=== PATIENT | female | born 1980 | race Caucasian/White ===

== ENCOUNTER → 2017-10-08 | Outpatient (CLI) | payer OTHER ==
[~2017-10-08] MED LIST: CALC-515 PO; OMEP-125 PO; PREN-127 PO
== END ==
LOC: LAB 09:16
PROVIDERS: ATTEND Obstetrics & Gynecology
DX: O09.519 Supervision of elderly primigravida, unspecified trimester (principal)
CPT/HCPCS: 87081

== ENCOUNTER → 2017-10-14 | Outpatient (CLI) | payer OTHER ==
--- NOTE | 2017-10-14 13:49 | RADIOLOGY IMAGING REPORT ---
FACILITY: [facility] PATIENT NAME: Luly Stone : 1980 MR: [id number] V: [id number] EXAM DATE: ORDERING PHYSICIAN: JORDANA ZAVALA TECHNOLOGIST: Location: [facility] [place] Patient: Luly Stone : 1980 Visit/Account:[id number] Date of Sevice: 10/14/2017 [facility] OB LIMITED HISTORY: Size less than dates, evaluate for growth and amniotic fluid volume COMPARISON: None. TECHNIQUE: Transabdominal imaging was performed for assessment of the fetus and maternal pelvic s tructures. Transvaginal imaging was not performed. FINDINGS: Intrauterine gestations: One. presentation: Cephalic. heart rate: 152 bpm. Amniotic fluid volume: Normal; ADIA 10 cm; MVP 3.68 cm. Placenta: Posterior and fundal. Uterus: Gravid, otherwise grossly unremarkable where visualized. Maternal adnexa/ovaries: Not evaluated. Cervix: Not evaluated. Gestational Parameters: BPD: 8.9 cm, 27th percentile HC: 32.7 cm, 18th percentile AC: 29.5 cm, less than the 2nd percentile FL: 7.75 cm, 92nd percentile Average ultrasound age (AUA): 36 weeks/ five days Estimated age based on LMP: 37 weeks/ four days LMP percentile is 18% Estimated weight (EFW): 2788 grams +/- 407 grams Anatomic Survey: anatomic survey was not performed. IMPRESSION: Single fetus in cephalic presentation with an estimated gestational age by measurements of 36 weeks a nd five days. Estimated gestational age by LMP is 37 weeks and four days. Estimated weight 2788 g ADIA measures 10 cm, the MVP of 3.68 cm Report Dictated By: Kortney Miller MD at 10/14/2017 1:40 PM Report E-Signed By: Kortney Miller MD at 10/14/2017 1:46 PM WSN:[id number]
== END ==
LOC: RAD 11:10
PROVIDERS: ATTEND Student in an Organized Health Care Education/Training Program
DX: Z02.9 Encounter for administrative examinations, unspecified (principal)

== ENCOUNTER 2017-10-18 12:35 | Outpatient (CLI) | payer OTHER ==
[~2017-10-18] VITALS: Ht 182.9 cm; Wt 76.2 kg
[2017-10-18 13:05] VITALS: BP 117/82; Ht 182.9 cm; Wt 76.2 kg
--- NOTE | 2017-10-18 16:36 | RADIOLOGY IMAGING REPORT ---
[place] [facility] [place] NAME: Luly Stone : 1980 MR: [id number] V: [id number] EXAM DATE: ORDERING PHYSICIAN: PAULO CUELLAR TECHNOLOGIST: Location: [facility] Patient: Luly Stone : 1980 Visit/Account:[id number] Date of Sevice: 10/18/2017 EXAMINATION: Biophysical Profile COMPARISON: OB ultrasound earlier the same day.. HISTORY: IUGR and category II heart tracing in office AGE: 38 weeks 1 day based on LMP FINDINGS: Standard transabdominal ultrasound for biophysical profile was performed. Presentation: Cephalic Placenta: Posterior and fundal; better visualized on the earlier ultrasound. heart rate: 142 bpm Amniotic fluid index: 11.4 cm Largest fluid pocket: 4.5 cm Biophysical profile: breathing movement: 2/2 Gross body movement: 2/2 tone: 2/2 Amniotic fluid volume: 2/2 Total score: 8/8 IMPRESSION: 1. Biophysical profile score: 8/8 2. Amniotic fluid index: 11.4 cm 3. heart rate: 142 bpm Report Dictated By: Gregory Vergara MD at 10/18/2017 4:29 PM Report E-Signed By: Gregory Vergara MD at 10/18/2017 4:32 PM [id number]
== END 2017-10-18 16:39 | disposition home or self-care (01) ==
LOC: L&D 12:35 → UNDOADMOB 12:35 → OB 12:35 → L&D 16:39 → UNDODISOB 16:39 → EDSTATUS 10-19 10:49
PROVIDERS: ATTEND Student in an Organized Health Care Education/Training Program
DX: O26.893 Other specified pregnancy related conditions, third trimester (principal); Z3A.38 38 weeks gestation of pregnancy
CPT/HCPCS: 59025; 76819; 99213; G0378; G0379

== ENCOUNTER 2017-10-25 10:52 | Inpatient (IN) | payer OTHER ==
[~2017-10-25] VITALS: Ht 182.9 cm; Wt 76.7 kg
[2017-10-25] MEDS ORDERED: FAMOTIDINE(*) 20MG/50ML PREMIX 50 ML IVPB PRN (18:47)
[2017-10-25] MEDS ORDERED: LR(*) 1000 ML BAG 1,000 ML IV PRN (18:47)
[2017-10-25] MEDS ORDERED: fentaNYL CITR 100 MCG/2 ML AMP IVP PRN (18:50)
[2017-10-25] MEDS ORDERED: LIDOCAINE 1% LOCAL 300 MG/30ML INJ PRN (18:50)
[2017-10-25] MEDS ORDERED: FLUSH 10 ML SYR IVP PRN (18:50)
[2017-10-25] MEDS ORDERED: LIDOCAINE/SOD BICARB 8.4% SYR SC PRN (18:50)
[2017-10-25] MEDS ORDERED: TERBUTALINE SULF 1 MG/ML VIAL SUBQ PRN (18:50)
[2017-10-25] MEDS ORDERED: METOCLOPRAMIDE 10 MG/2 ML SDV IVP PRN (18:50)
[2017-10-25] MEDS ORDERED: DINOPROSTONE 10 MG INSERT PV ONE ×2 (19:40→19:49)
[2017-10-25 20:08] VITALS: BMI 22.9
[2017-10-25 20:23] LABS: PLATELET COUNT, AUTOMATED 125 K/uL (150-450)
[2017-10-25] MEDS ORDERED: OXYTOCIN 30 UNIT/D5LR 500 ML 500 ML IV PRN (20:51)
--- NOTE | 2017-10-25 21:00 | History & Physical ---
History of Present Illness EDC per LMP: Oct 31, 2017 Estimated Gestational Age: 39.1 Chief Complaint Induction for growth restriction History of Present Illness 37yo at 39w1d presents for induction due to growth restriction. She reports some UCx. No VB, LOF, preeclampsia symptoms. PNR reviewed. c/b AMA and asymmetric growth restriction. Her AC is 2%ile and overall EFW 18%ile on 10/14/17. Her umbilical doppler studies one week ago were normal and her NSTs have been reactive. She reports normal FM. PNC by [facility]. History Patient's Blood Type: O Positive Rubella Status: Immune Group B Strep Screen: Negative Obstetrical History: Primip Past Medical History: PMH: None PSH: [place] teeth Allergies: Uncoded Allergies: hayfever (Allergy, Unknown, 09/24/17) Social History: No T/E/D. . Family History: Patient reports no known family medical history. Med Rec Home Meds Active Scripts Omeprazole (OMEPRAZOLE) 20 Mg Capsule.dr, 1 CAP PO QDAY, #30 CAP 1 Refill Prov:JORDANA ZAVALA MD 10/08/17 Reported Medications Calcium Carbonate (TUMS) 200 Mg Tab.chew, 200 MG PO, TAB.CHEW 09/24/17 Vits W-Ca,Fe,Fa(<1MG) ( VITAMINS) 1 Each Tablet, 1 EACH PO DAILY, TAB 09/24/17 Review of Systems Constitutional: No Fever Neurological: No Syncope Eyes: No Vision Change Cardiovascular: No Chest Pain Respiratory: No Shortness of Breath Gastrointestinal: No Nausea, No Vomiting, No Diarrhea Genitourinary: No Dysuria Musculoskeletal: No Pain Psychiatric: No Depression, No Anxiety Exam General Exam Vital Signs VS reviewed General Apperance: Alert/Awake/No Acute Distress Neuro: No Gross deficits Eyes: Normal Extraocular Movement & Vison Cardiovascular: Regular Rate and Rhythm Respiratory: No Respiratory Distress, Clear to Auscultation Abdomen: Gravid - Non-Tender Musculoskeletal: No Weakness/Pain Extremities: No Cyanosis,Clubbing or Edema Integumentary: Skin Intact without Lesions or Rash Psychological: Alert & Oriented X3, Appropriate Mood & Affect Cervical Dialation: 1 Cervical Effacement (%): 25 Cervical Consistency: Moderate Cervical Position: Posterior Station: -2 Presentation: Vertex Uterine Contractions(Q min): 6 Uterine Contraction Strength: Mild UC Resting Tone: Soft Fetus FHT Category: I Medical Decision Making Data Points Result Diagram: 10/25/172009 Assessment and Plan Problems: (1) affected by growth restriction Assessment & Plan: 37yo at 39w1d presents for induction due to growth restriction. NST is reactive. Will initiate cervadil for ripening. She is aware of the increased risk of due to FGR. She prefers to not use anesthesia medications if she delivers vaginally. Will monitor closely. (2) AMA (advanced maternal age) multigravida 35+ Assessment & Plan: [id number] negative with female chromosomes. (3) 39 weeks gestation of JORDANA ZAVALA MD Oct 25, 2017 21:00
[2017-10-25] MEDS ORDERED: ZOLPIDEM TARTRATE 10 MG TAB PO PRN (21:10)
[2017-10-25] MEDS ORDERED: ACETAMINOPHEN 500 MG TAB PO PRN (21:10)
[2017-10-26] MEDS ORDERED: OXYTOCIN 30 UNIT/D5LR 500 ML 500 ML IV PRN ×3 (06:28→19:10)
[2017-10-26] MEDS ORDERED: MISOPROSTOL 25 MCG CAP PV PRN (06:30)
[2017-10-26] MEDS ORDERED: FAMOTIDINE 20 MG TAB PO ONE ×2 (08:00→08:10)
[2017-10-26] MEDS: CALCIUM CARBONATE 500 MG CHEW PO PRN (08:12)
--- NOTE | 2017-10-26 08:19 | Labor Progress Note ---
Labor Subjective Progress Notes Subjective Pt is doing well. Feels very light contractions. Slept ok overnight. +FM. No bleeding or preeclampsia symptoms. Labor Objective Vital Signs VS reviewed Cervical Dialation: 1 Cervical Effacement (%): 70 Cervical Consistency: Moderate Cervical Position: Posterior Station: -2 Presentation: Vertex Uterine Contractions(Q min): 3 Uterine Contraction Strength: Mild UC Resting Tone: Soft Fetus FHT Category: I General Exam General Appearance: Alert/Awake/No Acute Distress Cardiovascular: Normal Rhythm & Peripheral Pulses Respiratory: No Respiratory Distress, Clear to Auscultation Abdomen: Gravid - Non-Tender : Normal Musculoskeletal: No Weakness/Pain Extremities: No Cyanosis,Clubbing or Edema Integumentary: Skin Intact without Lesions or Rash Psychological: Alert & Oriented X3, Appropriate Mood & Affect Other Result Diagram: 10/25/172009 Assessment and Plan Problems: (1) affected by growth restriction Assessment & Plan: Pt has progressed slightly with cervadil. However, Landeros score is still 5. She is chanel regularly. Will allow her to continue with this without additional medication for now. Will consider cytotec or ramos bulb if her contractions slow down. Otherwise, reevaluate in a few hours. (2) AMA (advanced maternal age) multigravida 35+ Assessment & Plan: [id number] negative with female chromosomes. (3) 39 weeks gestation of Problem Qualifiers (1) AMA (advanced maternal age) multigravida 35+: Trimester: third trimester Qualified Codes: O09.523 - Supervision of elderly multigravida, third trimester JORDANA ZAVALA MD Oct 26, 2017 08:19
--- NOTE | 2017-10-26 12:44 | Labor Progress Note ---
Labor Subjective Progress Notes Subjective Feeling slight contractions still. No bleeding. +FM. No preeclampsia symptoms. Labor Objective Vital Signs VS reviewed Cervical Dialation: 2 Cervical Effacement (%): 70 Cervical Consistency: Moderate Cervical Position: Mid Station: 0 Presentation: Vertex Uterine Contractions(Q min): 4 Uterine Contraction Strength: Mild UC Resting Tone: Soft Fetus FHT Category: I General Exam General Appearance: Alert/Awake/No Acute Distress Respiratory: No Respiratory Distress Abdomen: Gravid - Non-Tender Extremities: No Cyanosis,Clubbing or Edema Integumentary: Skin Intact without Lesions or Rash Psychological: Alert & Oriented X3, Appropriate Mood & Affect Other Result Diagram: 10/25/172009 Assessment and Plan Problems: (1) affected by growth restriction Assessment & Plan: Patient continues to contract regularly. Her Landeros score has progressed to 7. Membranes were stripped. Will allow her to continue without additional medication for now. Reevaluate in a few hours. (2) AMA (advanced maternal age) multigravida 35+ Assessment & Plan: [id number] negative with female chromosomes. (3) 39 weeks gestation of Problem Qualifiers (1) AMA (advanced maternal age) multigravida 35+: Trimester: third trimester Qualified Codes: O09.523 - Supervision of elderly multigravida, third trimester JORDANA ZAVALA MD Oct 26, 2017 12:44
--- NOTE | 2017-10-26 16:24 | Labor Progress Note ---
Labor Subjective Progress Notes Subjective Pt is feeling contractions, but not any stronger. No bleeding. +FM. No preeclampsia symptoms. Labor Objective Cervical Dialation: 3 Cervical Effacement (%): 70 Cervical Consistency: Soft Cervical Position: Posterior Station: -1 Presentation: Vertex Uterine Contractions(Q min): 4 UC Resting Tone: Soft Fetus FHT Category: I General Exam General Appearance: Alert/Awake/No Acute Distress Abdomen: Gravid - Non-Tender Extremities: No Cyanosis,Clubbing or Edema Integumentary: Skin Intact without Lesions or Rash Psychological: Alert & Oriented X3, Appropriate Mood & Affect Other Result Diagram: 10/25/172009 Assessment and Plan Problems: (1) affected by growth restriction Assessment & Plan: Cervix is more favorable, Landeros score 9. Will start pitocin and add slowly due to desire to not have epidural. Monitor for cervical change. (2) AMA (advanced maternal age) multigravida 35+ Assessment & Plan: [id number] negative with female chromosomes. (3) 39 weeks gestation of Problem Qualifiers (1) AMA (advanced maternal age) multigravida 35+: Trimester: third trimester Qualified Codes: O09.523 - Supervision of elderly multigravida, third trimester JORDANA ZAVALA MD Oct 26, 2017 16:24
[2017-10-26] MEDS ORDERED: ONDANSETRON 4 MG/2 ML VIAL IVP PRN (20:25)
--- NOTE | 2017-10-26 20:29 | Labor Progress Note ---
Labor Subjective Progress Notes Subjective Pt reports loss of fluid at 1900 with clear fluid. Since then, her severity of contractions has increased substantially. She denies VB. No preeclampsia symptoms. Labor Objective Vital Signs VS reviewed. Two recent elevated BP after SROM, possibly associated with increased pain Vaginal Discharge/Fluid?: Clear Fluid Cervical Dialation: 3 Cervical Effacement (%): 70 Cervical Consistency: Soft Cervical Position: Mid Station: 0 Presentation: Vertex Uterine Contractions(Q min): 2 Uterine Contraction Strength: Moderate UC Resting Tone: Soft Fetus FHT Category: I General Exam General Appearance: Alert/Awake/No Acute Distress Respiratory: No Respiratory Distress Abdomen: Gravid - Non-Tender Integumentary: Skin Intact without Lesions or Rash Psychological: Alert & Oriented X3, Appropriate Mood & Affect Other Result Diagram: 10/25/172009 Assessment and Plan Problems: (1) affected by growth restriction Assessment & Plan: SROM at 1900 with clear fluid. Pitocin at 11mU/min. Continue to monitor, she appears to be transitioning into active labor. (2) AMA (advanced maternal age) multigravida 35+ Assessment & Plan: [id number] negative with female chromosomes. (3) 39 weeks gestation of Problem Qualifiers (1) AMA (advanced maternal age) multigravida 35+: Trimester: third trimester Qualified Codes: O09.523 - Supervision of elderly multigravida, third trimester JORDANA ZAVALA MD Oct 26, 2017 20:29
[2017-10-26] MEDS ORDERED: LABETALOL HCL 100 MG/20ML VIAL IVP PRN (21:05)
[2017-10-26 21:09] LABS: PLATELET COUNT, AUTOMATED 134 K/uL (150-450)
--- NOTE | 2017-10-26 22:32 | OB Delivery Note ---
Delivery Note Vaginal Delivery Type: Spont. Vaginal Delivery Delivery Date: Oct 26, 2017 Delivery Time: 10:06 Estimated Gestational Age(wks): 39.2 Labor Stage III (minutes): 5 Delivery Anesthesia: Local Sex: Female Repair Needed: 2nd Degree Estimated Blood Loss: 300 Notes: Induction for FGR. Cervadil x 11hrs, followed by pitocin. SROM at 1959hrs at 3cm. Rapid progression to complete at 2153hrs. Delivery at 2206hrs. Placenta at 2211hrs. Repair of 2nd degree midline laceration. JORDANA ZAVALA MD Oct 26, 2017 22:32
[2017-10-26] MEDS ORDERED: MEASLES,MUMP,RUBELLA VAC 0.5ML SC ONE (22:35)
[2017-10-26] MEDS ORDERED: MAGNESIUM HYDROXIDE* 30ML UDCP PO PRN (22:35)
[2017-10-26] MEDS ORDERED: INFLUENZA VIRUS VAC 0.5ML SYR IM ONLY ONE (22:35)
[2017-10-26] MEDS ORDERED: GLYCERIN/WITCH HAZEL LEAF 1 PK TOP PRN (22:35)
[2017-10-26] MEDS ORDERED: HYDROCORTISONE 2.5% CR 30GM TB PR PRN (22:35)
[2017-10-26] MEDS ORDERED: LANOLIN OINT 7 GM TUBE TP PRN (22:35)
[2017-10-26] MEDS ORDERED: DIPHTH/TETANUS/ACEL. PERTUSSIS IM ONE (22:35)
[2017-10-26] MEDS ORDERED: ACETAMINOPHEN 325 MG TAB PO PRN (22:35)
[2017-10-26] MEDS ORDERED: BENZOCAINE 20% 60 ML BTL TP PRN (22:35)
[2017-10-26] MEDS ORDERED: APAP/HYDROCODONE 325/5 TAB PO PRN (22:35)
[2017-10-27] MEDS: IBUPROFEN 800 MG TAB PO SCH ×3 (00:24→17:21)
[2017-10-27] MEDS: CALCIUM CARBONATE 500 MG CHEW PO PRN (00:24)
[2017-10-27] MEDS ORDERED: LR(*) 1000 ML BAG 1,000 ML ONE (03:25)
[2017-10-27] MEDS ORDERED: LIDOCAINE 1% LOCAL 300 MG/30ML 30 ML ONE (03:25)
[2017-10-27 03:50] VITALS: BP 126/76
--- NOTE | 2017-10-27 08:55 | OB/GYN Progress Note ---
OB Subjective Progress Notes Subjective Doing well. Pain controlled with oral medications. Tolerating regular diet. Ambulating. Voiding. Normal lochia. No preeclampsia symptoms. OB Objective Physical Exam Vital Signs Date Time Temp Pulse Resp B/P (MAP) Pulse Ox O2 Delivery O2 Flow Rate FiO2 10/27/17 03:50 99.5 48 12 126/76 (93) 94 Room Air Intake and Output 10/27/17 07:00 Intake Total 1400 ml Output Total 1700 ml Balance -300 ml Intake IV Total 1400 ml Output Urine Total 1700 ml # Voids 1 General Appearance: Alert/Awake/No Acute Distress Neurological: No Gross deficits Eyes: Normal Extraocular Movement & Vison Cardiovascular: Normal Rhythm & Peripheral Pulses Respiratory: No Respiratory Distress : Normal Musculoskeletal: No Weakness/Pain Extremities: No Cyanosis,Clubbing or Edema Integumentary: Skin Intact without Lesions or Rash Psychological: Alert & Oriented X3, Appropriate Mood & Affect Result Diagram: 10/27/17 0605 10/26/172102 Assessment and Plan Problems: (1) examination following vaginal delivery Assessment & Plan: PPD#1 s/p . Doing well. Still with high BP, but not sure if it is GHTN versus preeclampsia. Either way she has no severe features, so do not need to perform cath UA at this time. Will monitor closely. Anticipate home tomorrow. Work on today. JORDANA ZAVALA MD Oct 27, 2017 08:55
--- NOTE | 2017-10-27 09:00 | DELIVERY NOTE ---
DELIVERY DATE: October 26, 2017 SURGEON: Shazia Villarreal MD ANESTHESIA: Local infiltration of 8 cc of lidocaine. PREOPERATIVE DIAGNOSIS: Intrauterine at 39 weeks and 2 days, presenting for induction of labor for growth restriction. POSTOPERATIVE DIAGNOSIS: 1. Intrauterine at 39 weeks and 2 days, presenting for induction of labor for growth restriction. 2. Delivery of viable female infant at 2206 hours weighing 5# 3oz with Apgars unavailable at the time of this dictation. PROCEDURE Spontaneous vaginal delivery. ESTIMATED BLOOD LOSS 300 mL. INDICATIONS This patient is a 37-year-old 1, para 0 who presented at 39 weeks and 1 day for induction of labor due to asymmetric growth restriction. At the time of presentation, she was 1 cm dilated, 25% effaced and -2 station. She was administered Cervidil for nearly 11 hours, which was then removed at 0600 hours on October 26, 2017. The patient continued to contract regularly and, therefore, is allowed to ripen with spontaneous contractions after Cervidil until 1630 hours, at which time she was noted to be 3, 70% and 0 station. She was then started on Pitocin slowly and slowly increased. She did begin to transition into active labor after spontaneous rupture of membranes at 1959 hours. She was noted to be complete at 2153 hours and was feeling the urge to push. PROCEDURE The patient was properly identified and placed in the dorsal lithotomy position and prepped and draped in the usual fashion for vaginal delivery. She was asked to push and was able to deliver the infant's vertex spontaneously in the HUANG position at 2206 hours over an intact perineum. Nuchal cord was checked but not noted. The anterior shoulder delivered easily followed by the posterior shoulder. The remainder of the was then easily delivered. had spontaneous cry and spontaneous movement of all four extremities. The was then dried, stimulated and the oropharynx and nasopharynx were both suctioned. The was then passed to mother's abdomen, where nursing personnel was in attendance. After two minutes, the cord was clamped x2 and cut. Cord blood was then obtained and passed off the table. Examination of the cervix, vaginal vault and perineum revealed a second degree midline laceration as well as bilateral periurethral lacerations. Pitocin was started through IV fluid to help firm the uterus. The placenta subsequently delivered spontaneously intact and was sent to pathology due to growth restriction. Further examination confirmed hemostasis of the periurethral lacerations. The second degree laceration was infiltrated with 1% lidocaine without epinephrine. The laceration was then reapproximated using 3-0 Vicryl in a running locking fashion. Hemostasis was assured after this procedure and the fundus was firm. The patient tolerated the procedure well and recovered in labor and delivery with the . AGATA
[2017-10-27] MEDS: DOCUSATE CALCIUM 240 MG CAP PO SCH ×2 (09:10→20:27)
[2017-10-27 09:35] VITALS: BP 101/58
[2017-10-27 12:55] VITALS: BP 123/77
[2017-10-27 15:15] VITALS: BP 117/65
[2017-10-27 20:31] VITALS: BP 126/90
[2017-10-27 23:51] VITALS: BP 134/89
[2017-10-28] MEDS: IBUPROFEN 800 MG TAB PO SCH ×2 (01:40→09:15)
[2017-10-28 05:23] VITALS: BP 112/77
--- NOTE | 2017-10-28 07:50 | OB/GYN Progress Note ---
OB Subjective Progress Notes Subjective Doing well. Pain controlled with oral medications. Tolerating regular diet. Ambulating. Voiding. Normal lochia. No preeclampsia symptoms. OB Objective Physical Exam Vital Signs Date Time Temp Pulse Resp B/P (MAP) Pulse Ox O2 Delivery O2 Flow Rate FiO2 10/28/17 05:23 97.7 49 16 112/77 (89) 95 Room Air Intake and Output 10/28/17 07:00 Intake Total 920 ml Balance 920 ml Intake Oral 920 ml General Appearance: Alert/Awake/No Acute Distress Neurological: No Gross deficits Eyes: Normal Extraocular Movement & Vison Cardiovascular: Normal Rhythm & Peripheral Pulses Respiratory: No Respiratory Distress Abdomen: Soft, Non-Tender, Non-Distended, Fundus Firm Musculoskeletal: No Weakness/Pain Extremities: No Cyanosis,Clubbing or Edema Integumentary: Skin Intact without Lesions or Rash Psychological: Alert & Oriented X3, Appropriate Mood & Affect Result Diagram: 10/27/17 0605 10/26/172102 Assessment and Plan Problems: (1) examination following vaginal delivery Assessment & Plan: PPD#2. Meeting milestones. Desires discharge to home today. Discussed routine expectations. Questions answered. Follow up in clinic in 2-3wks and in 6wks for check. JORDANA ZAVALA MD Oct 28, 2017 07:50
[2017-10-28] MEDS ORDERED: LOR5/325 PO (07:51)
[2017-10-28] MEDS ORDERED: IBUP800T37 PO (07:51)
--- NOTE | 2017-10-28 07:53 | OB/GYN Discharge Summary ---
Discharge Summary Reason for Hosp/Final Diag: (1) examination following vaginal delivery Hospital Course & Plan: PPD#2. Meeting milestones. Desires discharge to home today. Discussed routine expectations. Questions answered. Follow up in clinic in 2-3wks and in 6wks for check. Lates Vital Signs Vital Signs Date Time Temp Pulse Resp B/P (MAP) Pulse Ox O2 Delivery O2 Flow Rate FiO2 10/28/17 05:23 97.7 49 16 112/77 (89) 95 Room Air Weight (Pounds): 169 Result Diagram: 10/27/17 0610/26/172102 Condition: Improved Discharge: Home, Self [facility] Meds Active Scripts Hydrocodone Bit/Acetaminophen (HYDROCODON-ACETAMINOPHEN 5-325) 1 Each Tablet, 1 EACH PO Q6H PRN for pain, #10 TAB 0 Refills Prov:JORDANA ZAVALA MD 10/28/17 Omeprazole (OMEPRAZOLE) 20 Mg Capsule.dr, 1 CAP PO QDAY, #30 CAP 1 Refill Prov:JORDANA ZAVALA MD 10/08/17 Reported Medications Calcium Carbonate (TUMS) 200 Mg Tab.chew, 200 MG PO, TAB.CHEW 09/24/17 Vits W-Ca,Fe,Fa(<1MG) ( VITAMINS) 1 Each Tablet, 1 EACH PO DAILY, TAB 09/24/17 Follow up Referrals: [facility] - In Two Weeks @ [facility] with JORDANA ZAVALA MD Discharge Diet: As Tolerates Discharge Activity: Pelvic Rest JORDANA ZAVALA MD Oct 28, 2017 07:53
[2017-10-28 09:00] VITALS: BP 138/81
[2017-10-28 09:14] VITALS: Ht 182.9 cm; Wt 76.7 kg
[2017-10-28] MEDS: DOCUSATE CALCIUM 240 MG CAP PO SCH (09:15)
[2017-10-28 11:30] VITALS: BP 142/90
[2017-10-28 12:15] VITALS: BP 134/90
== END 2017-10-28 15:45 | disposition home or self-care (01) | DRG 775 ==
LOC: OB 18:39 → PED 10-27 16:00
PROVIDERS: ADMIT Obstetrics & Gynecology; ATTEND Obstetrics & Gynecology
PROC: 3E0P7VZ Introduction of Hormone into Female Reproductive, Via Natural or Artificial Opening (ICD-10-PCS; 2017-10-25)
PROC: 10E0XZZ Delivery of Products of Conception, External Approach (ICD-10-PCS; principal; 2017-10-26)
PROC: 0KQM0ZZ Repair Perineum Muscle, Open Approach (ICD-10-PCS; 2017-10-26)
PROC: 0UQMXZZ Repair Vulva, External Approach (ICD-10-PCS; 2017-10-26)
DX: O36.5930 Maternal care for other known or suspected poor fetal growth, third trimester, not applicable or unspecified (principal); O71.82 Other specified trauma to perineum and vulva; O70.1 Second degree perineal laceration during delivery; Z3A.39 39 weeks gestation of pregnancy; Z37.0 Single live birth
CPT/HCPCS: 36415; 82040; 82247; 82310; 82374; 82435; 82565; 82947; 84075; 84132; 84155; 84295; 84450; 84460; 84520; 85025; 85027; 86850; 86900; 86901; 88307; J2001; J2405; J2590; J3010; J7120

== ENCOUNTER → 2018-05-16 | Outpatient (CLI) | payer OTHER ==
[2017-10-28 09:14] VITALS: BMI 22.9
[~2018-05-16] MED LIST changes: +ALBU8.5H IH; +FLUC150T40 PO; +IBUP800T37 PO; +LOR5/325 PO; +PRED20TA6 PO
== END ==
LOC: LAB 12:10
PROVIDERS: ATTEND Student in an Organized Health Care Education/Training Program
DX: N89.8 Other specified noninflammatory disorders of vagina (principal)
CPT/HCPCS: 87210